=== PATIENT | female | born 1990 | race Caucasian/White ===

== ENCOUNTER 2016-11-27 23:07 | Emergency (ER) | payer SELFPAY ==
[2016-11-28] MEDS ORDERED: ALU/MAG/SIM 30 ML UDC ONE (00:19)
[2016-11-28] MEDS ORDERED: LIDOCAINE 2% VISC 15 ML UDC ONE (00:19)
[2016-11-28] MEDS ORDERED: LIDOCAINE 1% MDV 20 ML ONE (01:06)
[2016-11-28] MEDS ORDERED: CEFTRIAXONE 1 GM VIAL ONE (01:06)
== END 2016-11-28 02:03 | disposition home or self-care (01) ==
LOC: ER 23:07
DX: R10.13 Epigastric pain (principal); R05 Cough; R07.89 Other chest pain; K08.89 Other specified disorders of teeth and supporting structures; N39.0 Urinary tract infection, site not specified; R31.9 Hematuria, unspecified; F17.210 Nicotine dependence, cigarettes, uncomplicated
CPT/HCPCS: 36415; 71020; 80053; 80307; 81001; 85025; 87088; 96372